=== PATIENT | female | born 1950 | race Caucasian/White ===

== ENCOUNTER 2017-10-11 05:45 | Inpatient (IN) ==
[2017-10-06 12:27] LABS: Apearance,Urine CLEAR (Clear); Bilirubin,Urine Negative (Negative); Blood, Urine Small mg/dL (Negative); Glucose,Urine (UA) Negative (Negative); Ketones,Urine Negative (Negative); Mucus,Urine Occasional /LPF (Occasional); Nitrite,Urine Negative (Negative); Protein,Urine Negative; RBC,Urine 1 /HPF (0-4); Squamous Epithelial Cell,Urine Occasional /HPF (0-10); Urine Color Straw (Yellow); Urine Specific Gravity 1.008 (1.001-1.035); Urine Urobilinogen < 2.0 EU/DL (0.2-1.0); WBC,Urine <1 /HPF (0-6)
[2017-10-06 12:28] LABS: Basophils % 0.5 % (0.0-0.8); Eosinophils # 0.2 10*3/uL (0.0-0.87); Eosinophils % 1.9 % (0.00-10.9); Hematocrit 42.2 VOL% (35.7-47.0); Hemoglobin 13.8 GM/DL (12.0-16.0); Immature Granulocytes % 0.4 %; Immature Granulocytes Absolute 0.03 #; Lymphocytes # 2.5 10*3/uL (1.4-4.0); Lymphocytes % 29.4 % (21.3-54.2); Mean Corpuscular HGB Conc 32.7 GM/DL (32-36); Mean Corpuscular Hemoglobin 30 PG (27-34); Mean Corpuscular Volume 91.3 FL (87-102); Mean Platelet Volume 10.3 FL (9.6-12.0); Monocytes # 0.7 10*3/uL (0.11-0.8); Monocytes % 8.2 % (1.7-12.7); Neutrophils # 5.1 10*3/uL (1.4-7.4); Neutrophils % 59.6 % (38.7-73.9); Platelet Count 297 T/CUMM (130-400); Red Blood Count 4.62 MC/CUMM (3.8-5.5); Red Cell Distribution Width 13.2 % (9.3-17.3); White Blood Count 8.5 T/CUMM (4-12)
[2017-10-06 12:37] LABS: INR 0.9
[2017-10-06 13:02] LABS: Albumin 3.9 G/DL (3.4-5.0); Bilirubin,Total 0.7 MG/DL (0.2-1.0); Calcium 9.2 MG/DL (8.5-10.1); Potassium 4.2 MMOL/L (3.5-5.1); Total Protein 7.6 G/DL (6.4-8.3)
[2017-10-11] MEDS ORDERED: VANCOMYCIN INJ 1,000 MG in SODIUM CHLORIDE 0.9% 250 ML IV ONE (06:00)
[2017-10-11] MEDS ORDERED: CLINDAMYCIN INJ 900 MG in PREMIX 1 EACH IV ONE (06:00)
[2017-10-11] MEDS ORDERED: SCOPOLAMINE 1.5 MG PATCH TRANSDERM ONE ×2 (06:25→06:27)
[2017-10-11] MEDS ORDERED: VANCOMYCIN 1,000 MG VIAL ONE (06:25)
[2017-10-11] MEDS ORDERED: CLINDAMYCIN INJ 50 ML IV ONE (06:25)
[2017-10-11] MEDS ORDERED: LACTATED RINGERS 1,000 ML IV SCH (06:30)
[2017-10-11] MEDS ORDERED: BACITRACIN OINT 0.9 GM PACK TOP ONE (06:36)
[2017-10-11] MEDS ORDERED: TRANEXAMIC ACID 1,000 MG/10 ML VIAL ONE (06:36)
[2017-10-11] MEDS ORDERED: BUPIVACAINE SPINAL 0.75% 2 ML AMP SPINAL ONE (06:48)
[2017-10-11] MEDS ORDERED: clonazePAM 0.5 MG TABLET PO PRN (07:20)
[2017-10-11] MEDS ORDERED: oxyCODONE/ACETAMINOPHEN 5-325 MG TABLET PO PRN (07:22)
[2017-10-11] MEDS ORDERED: oxyCODONE IR 5 MG TABLET PO PRN ×2 (07:22)
[2017-10-11] MEDS ORDERED: MORPHINE 4 MG/1 ML VIAL IV PRN ×2 (07:22)
[2017-10-11] MEDS ORDERED: ONDANSETRON 4 MG/2 ML VIAL IV PRN ×2 (07:22→10:00)
[2017-10-11] MEDS ORDERED: ROPIVACAINE 0.5% 30 ML VIAL ONE (08:57)
[2017-10-11] MEDS ORDERED: MIDAZOLAM 2 MG/2 ML VIAL ONE ×2 (09:22→09:23)
[2017-10-11] MEDS ORDERED: PROPOFOL 200 MG/20 ML VIAL IV ONE (09:22)
[2017-10-11] MEDS ORDERED: SEVOFLURANE 1 UNIT/15 MINUTE INH ONE (09:22)
[2017-10-11] MEDS ORDERED: fentaNYL 100 MCG/2 ML VIAL ONE (09:23)
[2017-10-11] MEDS ORDERED: ePHEDrine 50 MG/ML AMP ONE (09:23)
[2017-10-11] MEDS ORDERED: ONDANSETRON 4 MG/2 ML VIAL ONE (09:23)
[2017-10-11] MEDS ORDERED: PROMETHAZINE 25 MG/1 ML VIAL ONE (09:23)
[2017-10-11] MEDS ORDERED: SODIUM CHLORIDE 0.9% 100 ML IV ONE (09:24)
[2017-10-11] MEDS ORDERED: ACETAMINOPHEN 1,000 MG/100 ML VIAL IV ONE (09:24)
[2017-10-11] MEDS ORDERED: LACTATED RINGERS 1,000 ML IV ONE (09:24)
[2017-10-11] MEDS ORDERED: DEXAMETHASONE 20 MG/5 ML VIAL ONE (09:24)
[2017-10-11] MEDS: MORPHINE 10 MG/1 ML VIAL IV PRN ×2 (10:05→10:12)
[2017-10-11] MEDS: ACETAMINOPHEN 500 MG TABLET PO SCH ×2 (12:47→18:27)
[2017-10-11] MEDS: CLINDAMYCIN INJ 900 MG in PREMIX 1 EACH IV SCH (12:48)
[2017-10-11] MEDS: LACTATED RINGERS 1,000 ML IV SCH ×3 (15:30→23:30)
[2017-10-11] MEDS: ALBUTEROL 2.5 MG/3 ML NEB RESP TX SCH ×2 (17:33→19:27)
[2017-10-11] MEDS: MONTELUKAST 10 MG TABLET PO SCH (18:26)
[2017-10-11] MEDS: hydroCHLOROthiazide 12.5 MG CAPSULE PO SCH (18:26)
[2017-10-11] MEDS: PANTOPRAZOLE 40 MG TABLET PO SCH (18:26)
[2017-10-11] MEDS: DOCUSATE SODIUM 100 MG CAPSULE PO SCH ×2 (18:26→22:19)
[2017-10-11] MEDS: KETOROLAC 30 MG/1 ML VIAL IV SCH ×3 (18:27→22:19)
[2017-10-12] MEDS: ALBUTEROL 2.5 MG/3 ML NEB RESP TX SCH ×2 (00:07→07:22)
[2017-10-12] MEDS ORDERED: CLINDAMYCIN INJ 900 MG in PREMIX 1 EACH IV SCH (00:30)
[2017-10-12] MEDS: ACETAMINOPHEN 500 MG TABLET PO SCH ×2 (01:31→06:12)
[2017-10-12] MEDS: FONDAPARINUX 2.5 MG/0.5 ML SYRINGE SUBCUT SCH (01:35)
[2017-10-12 05:57] LABS: Basophils % 0.1 % (0.0-0.8); Hematocrit 31.4 VOL% (35.7-47.0); Hemoglobin 10.4 GM/DL (12.0-16.0); Immature Granulocytes % 0.5 %; Immature Granulocytes Absolute 0.07 #; Lymphocytes # 1.3 10*3/uL (1.4-4.0); Lymphocytes % 9.7 % (21.3-54.2); Mean Corpuscular HGB Conc 33.1 GM/DL (32-36); Mean Corpuscular Hemoglobin 30 PG (27-34); Mean Platelet Volume 10.9 FL (9.6-12.0); Neutrophils # 10.6 10*3/uL (1.4-7.4); Neutrophils % 81.7 % (38.7-73.9); Platelet Count 239 T/CUMM (130-400); Red Blood Count 3.53 MC/CUMM (3.8-5.5); Red Cell Distribution Width 13.3 % (9.3-17.3)
[2017-10-12 06:29] LABS: Calcium 8.5 MG/DL (8.5-10.1); Osmolality,Calculated 280.3 MOS/KG (273-304); Potassium 3.9 MMOL/L (3.5-5.1)
[2017-10-12] MEDS ORDERED: MAGNESIUM HYDROXIDE SUSP 30 ML UDCUP PO PRN (08:00)
[2017-10-12] MEDS: BISOPROLOL 5 MG TABLET PO SCH ×3 (09:00→22:01)
[2017-10-12] MEDS: CLINDAMYCIN INJ 900 MG in PREMIX 1 EACH IV SCH (09:01)
[2017-10-12] MEDS: KETOROLAC 30 MG/1 ML VIAL IV SCH (09:01)
[2017-10-12] MEDS: LACTATED RINGERS 1,000 ML IV SCH (09:02)
[2017-10-12] MEDS: PANTOPRAZOLE 40 MG TABLET PO SCH (09:11)
[2017-10-12] MEDS: MONTELUKAST 10 MG TABLET PO SCH (09:11)
[2017-10-12] MEDS: DOCUSATE SODIUM 100 MG CAPSULE PO SCH ×2 (09:11→21:56)
[2017-10-12] MEDS: hydroCHLOROthiazide 12.5 MG CAPSULE PO SCH (09:12)
[2017-10-12] MEDS: oxyCODONE/ACETAMINOPHEN 5-325 MG TABLET PO PRN ×2 (10:32→14:42)
[2017-10-12] MEDS ORDERED: ALBUTEROL 2.5 MG/3 ML NEB RESP TX PRN (11:24)
[2017-10-12] MEDS: CELECOXIB 200 MG CAPSULE PO SCH (14:42)
[2017-10-13] MEDS: diphenhydrAMINE CAP 25 MG CAPSULE PO PRN ×2 (01:36→11:20)
[2017-10-13] MEDS: oxyCODONE/ACETAMINOPHEN 5-325 MG TABLET PO PRN (01:36)
[2017-10-13] MEDS: FONDAPARINUX 2.5 MG/0.5 ML SYRINGE SUBCUT SCH (01:39)
[2017-10-13 06:45] LABS: Basophils % 0.2 % (0.0-0.8); Eosinophils # 0.1 10*3/uL (0.0-0.87); Eosinophils % 0.5 % (0.00-10.9); Hematocrit 31.1 VOL% (35.7-47.0); Immature Granulocytes % 0.4 %; Immature Granulocytes Absolute 0.04 #; Lymphocytes # 3.1 10*3/uL (1.4-4.0); Lymphocytes % 28.2 % (21.3-54.2); Mean Corpuscular HGB Conc 32.2 GM/DL (32-36); Mean Corpuscular Hemoglobin 30 PG (27-34); Mean Corpuscular Volume 92.8 FL (87-102); Mean Platelet Volume 11.3 FL (9.6-12.0); Monocytes # 1.1 10*3/uL (0.11-0.8); Monocytes % 9.9 % (1.7-12.7); Neutrophils # 6.7 10*3/uL (1.4-7.4); Neutrophils % 60.8 % (38.7-73.9); Platelet Count 207 T/CUMM (130-400); Red Blood Count 3.35 MC/CUMM (3.8-5.5); Red Cell Distribution Width 13.9 % (9.3-17.3)
[2017-10-13] MEDS: diphenhydrAMINE CAP 25 MG CAPSULE PO SCH ×2 (07:41→09:00)
[2017-10-13] MEDS: GABAPENTIN 300 MG CAPSULE PO SCH ×2 (07:41→09:00)
[2017-10-13] MEDS: BISOPROLOL 5 MG TABLET PO SCH ×2 (08:16→21:26)
[2017-10-13] MEDS: hydroCHLOROthiazide 12.5 MG CAPSULE PO SCH (08:16)
[2017-10-13] MEDS: CELECOXIB 200 MG CAPSULE PO SCH (08:16)
[2017-10-13] MEDS: PANTOPRAZOLE 40 MG TABLET PO SCH (08:16)
[2017-10-13] MEDS: DOCUSATE SODIUM 100 MG CAPSULE PO SCH ×2 (08:19→21:23)
[2017-10-13] MEDS: MONTELUKAST 10 MG TABLET PO SCH (08:19)
[2017-10-13] MEDS: ONDANSETRON 4 MG PO SCH (09:00)
[2017-10-14] MEDS: FONDAPARINUX 2.5 MG/0.5 ML SYRINGE SUBCUT SCH (01:12)
[2017-10-14 03:52] LABS: Basophils % 0.4 % (0.0-0.8); Eosinophils # 0.2 10*3/uL (0.0-0.87); Eosinophils % 1.4 % (0.00-10.9); Hematocrit 34.2 VOL% (35.7-47.0); Immature Granulocytes % 0.5 %; Immature Granulocytes Absolute 0.05 #; Lymphocytes # 2.1 10*3/uL (1.4-4.0); Lymphocytes % 19.5 % (21.3-54.2); Mean Corpuscular HGB Conc 32.2 GM/DL (32-36); Mean Corpuscular Hemoglobin 30 PG (27-34); Mean Corpuscular Volume 92.4 FL (87-102); Mean Platelet Volume 11.2 FL (9.6-12.0); Monocytes % 9.8 % (1.7-12.7); Neutrophils # 7.2 10*3/uL (1.4-7.4); Neutrophils % 68.4 % (38.7-73.9); Platelet Count 233 T/CUMM (130-400); Red Cell Distribution Width 13.6 % (9.3-17.3); White Blood Count 10.6 T/CUMM (4-12)
[2017-10-14] MEDS: MONTELUKAST 10 MG TABLET PO SCH (08:39)
[2017-10-14] MEDS: BISOPROLOL 5 MG TABLET PO SCH ×2 (08:40→21:11)
[2017-10-14] MEDS: CELECOXIB 200 MG CAPSULE PO SCH (08:40)
[2017-10-14] MEDS: hydroCHLOROthiazide 12.5 MG CAPSULE PO SCH (08:40)
[2017-10-14] MEDS: PANTOPRAZOLE 40 MG TABLET PO SCH (08:41)
[2017-10-14] MEDS: DOCUSATE SODIUM 100 MG CAPSULE PO SCH ×2 (08:41→21:13)
[2017-10-14] MEDS: TEMAZEPAM 15 MG CAPSULE PO PRN (21:11)
[2017-10-15] MEDS: FONDAPARINUX 2.5 MG/0.5 ML SYRINGE SUBCUT SCH (01:45)
[2017-10-15] MEDS: PANTOPRAZOLE 40 MG TABLET PO SCH (08:16)
[2017-10-15] MEDS: hydroCHLOROthiazide 12.5 MG CAPSULE PO SCH (08:16)
[2017-10-15] MEDS: CELECOXIB 200 MG CAPSULE PO SCH (08:16)
[2017-10-15] MEDS: DOCUSATE SODIUM 100 MG CAPSULE PO SCH ×2 (08:16→20:22)
[2017-10-15] MEDS: MONTELUKAST 10 MG TABLET PO SCH (08:16)
[2017-10-15] MEDS: BISOPROLOL 5 MG TABLET PO SCH ×2 (08:16→20:21)
[2017-10-15] MEDS ORDERED: traMADol 50 MG TABLET PO PRN (19:24)
[2017-10-15] MEDS: traMADol 50 MG TABLET PO PRN (19:29)
[2017-10-15] MEDS: TEMAZEPAM 15 MG CAPSULE PO PRN (20:21)
[2017-10-16] MEDS: FONDAPARINUX 2.5 MG/0.5 ML SYRINGE SUBCUT SCH (01:14)
[2017-10-16] MEDS: CELECOXIB 200 MG CAPSULE PO SCH (10:17)
[2017-10-16] MEDS: BISOPROLOL 5 MG TABLET PO SCH (10:18)
[2017-10-16] MEDS: PANTOPRAZOLE 40 MG TABLET PO SCH (10:18)
[2017-10-16] MEDS: DOCUSATE SODIUM 100 MG CAPSULE PO SCH (10:19)
[2017-10-16] MEDS: MONTELUKAST 10 MG TABLET PO SCH (10:19)
[2017-10-16] MEDS: hydroCHLOROthiazide 12.5 MG CAPSULE PO SCH (10:19)
[2017-10-16] MEDS: traMADol 50 MG TABLET PO PRN ×2 (10:27→13:05)
[2017-10-16 11:35] VITALS: BP 116/60
== END 2017-10-16 13:09 | disposition swing bed (61) | DRG 470 ==
LOC: N.OR 05:45 → N.SDSINP 05:48 → N.3E 07:22
PROVIDERS: ADMIT Orthopaedic Surgery; ATTEND Orthopaedic Surgery

== ENCOUNTER 2018-09-18 05:42 | Inpatient (IN) ==
[2018-09-13 11:36] LABS: Basophils % 0.4 % (0.0-0.8); Eosinophils # 0.1 10*3/uL (0.0-0.87); Eosinophils % 1.9 % (0.00-10.9); Hematocrit 39.2 VOL% (35.7-47.0); Hemoglobin 12.3 GM/DL (12.0-16.0); Immature Granulocytes % 0.3 %; Immature Granulocytes Absolute 0.02 #; Lymphocytes # 1.7 10*3/uL (1.4-4.0); Mean Corpuscular HGB Conc 31.4 GM/DL (32-36); Mean Corpuscular Hemoglobin 29 PG (27-34); Mean Corpuscular Volume 93.1 FL (87-102); Mean Platelet Volume 9.9 FL (9.6-12.0); Monocytes # 0.7 10*3/uL (0.11-0.8); Monocytes % 10.6 % (1.7-12.7); Neutrophils # 4.4 10*3/uL (1.4-7.4); Neutrophils % 62.8 % (38.7-73.9); Platelet Count 262 T/CUMM (130-400); Red Blood Count 4.21 MC/CUMM (3.8-5.5); Red Cell Distribution Width 13.1 % (9.3-17.3)
[2018-09-13 11:46] LABS: Apearance,Urine CLEAR (Clear); Bacteria,Urine Occasional /HPF (Few); Bilirubin,Urine Negative (Negative); Blood, Urine Negative (Negative); Glucose,Urine (UA) Negative (Negative); Ketones,Urine Negative (Negative); Mucus,Urine Occasional /LPF (Occasional); Nitrite,Urine Negative (Negative); Protein,Urine Negative; RBC,Urine 1 /HPF (0-4); Squamous Epithelial Cell,Urine Occasional /HPF (0-10); Urine Color Yellow (Yellow); Urine Specific Gravity 1.006 (1.001-1.035); Urine Urobilinogen < 2.0 EU/DL (0.2-1.0); WBC,Urine <1 /HPF (0-6)
[2018-09-13 11:46] LABS: INR 0.9; PT Patient Result 10.1 SECS; Partial Thromboplastin Time 25.9 SECS (0-40)
[2018-09-13 12:08] LABS: Albumin 3.2 G/DL (3.4-5.0); Bilirubin,Total 0.9 MG/DL (0.2-1.0); Calcium 8.7 MG/DL (8.5-10.1); Osmolality,Calculated 280.1 MOS/KG (273-304); Potassium 4.1 MMOL/L (3.5-5.1); Total Protein 7.4 G/DL (6.4-8.3)
[2018-09-18] MEDS ORDERED: ceFAZolin 1,000 MG VIAL ONE (05:58)
[2018-09-18] MEDS ORDERED: VANCOMYCIN 1,000 MG VIAL ONE (05:58)
[2018-09-18] MEDS ORDERED: TRANEXAMIC ACID 1,000 MG/10 ML VIAL ONE ×2 (06:01→06:37)
[2018-09-18] MEDS ORDERED: ROPIVACAINE 0.5% 30 ML VIAL ONE ×2 (06:01→07:01)
[2018-09-18] MEDS ORDERED: BUPIVACAINE SPINAL 0.75% 2 ML AMP SPINAL ONE (06:01)
[2018-09-18] MEDS ORDERED: CLINDAMYCIN INJ 900 MG in PREMIX 1 EACH IV ONE (06:30)
[2018-09-18] MEDS ORDERED: LACTATED RINGERS 1,000 ML IV SCH (06:30)
[2018-09-18] MEDS ORDERED: VANCOMYCIN INJ 1,000 MG in SODIUM CHLORIDE 0.9% 250 ML IV ONE (06:30)
[2018-09-18] MEDS ORDERED: BACITRACIN OINT 0.9 GM PACK TOP ONE (06:37)
[2018-09-18] MEDS ORDERED: ceFAZolin 1,000 MG in SYRINGE 1 EACH IV ONE (09:00)
[2018-09-18] MEDS ORDERED: PROPOFOL 200 MG/20 ML VIAL IV ONE (09:10)
[2018-09-18] MEDS ORDERED: fentaNYL 100 MCG/2 ML VIAL ONE (09:11)
[2018-09-18] MEDS ORDERED: ONDANSETRON 4 MG/2 ML VIAL ONE (09:11)
[2018-09-18] MEDS ORDERED: MIDAZOLAM 2 MG/2 ML VIAL ONE (09:11)
[2018-09-18] MEDS ORDERED: DEXAMETHASONE 4 MG/1 ML VIAL ONE (09:11)
[2018-09-18] MEDS ORDERED: ACETAMINOPHEN 1,000 MG/100 ML VIAL IV ONE (09:12)
[2018-09-18] MEDS ORDERED: SODIUM CHLORIDE 0.9% 200 ML IV ONE (09:12)
[2018-09-18] MEDS ORDERED: LACTATED RINGERS 1,000 ML IV ONE (09:12)
[2018-09-18] MEDS ORDERED: PHENYLEPHRINE 1 MG/10 ML SYRINGE IV ONE (09:12)
[2018-09-18] MEDS ORDERED: KETOROLAC 30 MG/1 ML VIAL ONE (09:12)
[2018-09-18] MEDS ORDERED: clonazePAM 0.5 MG TABLET PO PRN (09:24)
[2018-09-18] MEDS ORDERED: ALBUTEROL 2.5 MG/3 ML NEB RESP TX PRN (09:24)
[2018-09-18] MEDS ORDERED: MAGNESIUM HYDROXIDE SUSP 30 ML UDCUP PO PRN (09:25)
[2018-09-18] MEDS ORDERED: MORPHINE 4 MG/1 ML VIAL IV PRN (09:25)
[2018-09-18] MEDS ORDERED: ONDANSETRON 4 MG/2 ML VIAL IV PRN (09:25)
[2018-09-18] MEDS ORDERED: DOCUSATE SODIUM 100 MG CAPSULE PO SCH (09:30)
[2018-09-18] MEDS: LACTATED RINGERS 1,000 ML IV SCH (11:29)
[2018-09-18] MEDS: KETOROLAC 30 MG/1 ML VIAL IV SCH ×4 (11:30→21:44)
[2018-09-18] MEDS: ceFAZolin 2,000 MG in PREMIX 1 EACH IV SCH ×2 (14:06→20:38)
[2018-09-18] MEDS: ACETAMINOPHEN 500 MG TABLET PO SCH ×2 (14:06→20:37)
[2018-09-18] MEDS: MONTELUKAST 10 MG TABLET PO SCH (20:37)
[2018-09-18] MEDS: DOCUSATE SODIUM 100 MG CAPSULE PO SCH (20:38)
[2018-09-19] MEDS: LACTATED RINGERS 1,000 ML IV SCH ×2 (00:33→09:25)
[2018-09-19] MEDS: ACETAMINOPHEN 500 MG TABLET PO SCH ×2 (01:58→08:27)
[2018-09-19] MEDS: FONDAPARINUX 2.5 MG/0.5 ML SYRINGE SUBCUT SCH (05:23)
[2018-09-19 05:57] LABS: Basophils % 0.1 % (0.0-0.8); Eosinophils % 0.1 % (0.00-10.9); Hematocrit 30.9 VOL% (35.7-47.0); Immature Granulocytes % 0.4 %; Immature Granulocytes Absolute 0.04 #; Lymphocytes # 1.9 10*3/uL (1.4-4.0); Lymphocytes % 18.8 % (21.3-54.2); Mean Corpuscular HGB Conc 32.4 GM/DL (32-36); Mean Corpuscular Hemoglobin 30 PG (27-34); Mean Corpuscular Volume 92.8 FL (87-102); Mean Platelet Volume 10.4 FL (9.6-12.0); Monocytes % 9.6 % (1.7-12.7); Neutrophils # 7.3 10*3/uL (1.4-7.4); Platelet Count 204 T/CUMM (130-400); Red Blood Count 3.33 MC/CUMM (3.8-5.5); Red Cell Distribution Width 13.2 % (9.3-17.3); White Blood Count 10.2 T/CUMM (4-12)
[2018-09-19 06:22] LABS: Calcium 8.5 MG/DL (8.5-10.1); Potassium 3.9 MMOL/L (3.5-5.1)
[2018-09-19] MEDS ORDERED: TEMAZEPAM 15 MG CAPSULE PO PRN (06:22)
[2018-09-19] MEDS ORDERED: ACETAMINOPHEN 325 MG TABLET PO PRN (06:22)
[2018-09-19] MEDS: PANTOPRAZOLE 40 MG TABLET PO SCH (08:27)
[2018-09-19] MEDS: GABAPENTIN 300 MG CAPSULE PO SCH (08:27)
[2018-09-19] MEDS: CETIRIZINE 10 MG TABLET PO SCH (08:28)
[2018-09-19] MEDS: DOCUSATE SODIUM 100 MG CAPSULE PO SCH ×2 (08:28→20:21)
[2018-09-19] MEDS: BISOPROLOL 5 MG TABLET PO SCH (09:12)
[2018-09-19] MEDS: CELECOXIB 200 MG CAPSULE PO SCH (15:13)
[2018-09-19] MEDS: oxyCODONE IR 5 MG TABLET PO PRN (17:23)
[2018-09-19] MEDS: diphenhydrAMINE CAP 25 MG CAPSULE PO PRN (17:23)
[2018-09-19] MEDS: MONTELUKAST 10 MG TABLET PO SCH (20:21)
[2018-09-20] MEDS: oxyCODONE IR 5 MG TABLET PO PRN ×3 (02:47→19:44)
[2018-09-20] MEDS: diphenhydrAMINE CAP 25 MG CAPSULE PO PRN ×3 (02:47→19:44)
[2018-09-20] MEDS: FONDAPARINUX 2.5 MG/0.5 ML SYRINGE SUBCUT SCH (04:52)
[2018-09-20 06:06] LABS: Basophils % 0.1 % (0.0-0.8); Eosinophils # 0.1 10*3/uL (0.0-0.87); Eosinophils % 0.9 % (0.00-10.9); Hematocrit 34.3 VOL% (35.7-47.0); Hemoglobin 10.9 GM/DL (12.0-16.0); Immature Granulocytes % 0.8 %; Immature Granulocytes Absolute 0.07 #; Mean Corpuscular HGB Conc 31.8 GM/DL (32-36); Mean Corpuscular Hemoglobin 30 PG (27-34); Mean Corpuscular Volume 93.2 FL (87-102); Mean Platelet Volume 11.1 FL (9.6-12.0); Monocytes # 0.9 10*3/uL (0.11-0.8); Monocytes % 10.1 % (1.7-12.7); Neutrophils # 6.1 10*3/uL (1.4-7.4); Neutrophils % 66.1 % (38.7-73.9); Platelet Count 200 T/CUMM (130-400); Red Blood Count 3.68 MC/CUMM (3.8-5.5); Red Cell Distribution Width 13.2 % (9.3-17.3); White Blood Count 9.2 T/CUMM (4-12)
[2018-09-20] MEDS: GABAPENTIN 300 MG CAPSULE PO SCH (08:06)
[2018-09-20] MEDS: DOCUSATE SODIUM 100 MG CAPSULE PO SCH ×2 (08:06→19:40)
[2018-09-20] MEDS: CETIRIZINE 10 MG TABLET PO SCH (08:06)
[2018-09-20] MEDS: PANTOPRAZOLE 40 MG TABLET PO SCH (08:06)
[2018-09-20] MEDS: BISOPROLOL 5 MG TABLET PO SCH (08:06)
[2018-09-20] MEDS: CELECOXIB 200 MG CAPSULE PO SCH (08:06)
[2018-09-20] MEDS: MONTELUKAST 10 MG TABLET PO SCH (19:40)
[2018-09-21] MEDS: oxyCODONE IR 5 MG TABLET PO PRN ×2 (04:18→10:22)
[2018-09-21] MEDS: diphenhydrAMINE CAP 25 MG CAPSULE PO PRN ×2 (04:18→10:22)
[2018-09-21] MEDS: FONDAPARINUX 2.5 MG/0.5 ML SYRINGE SUBCUT SCH (04:18)
[2018-09-21] MEDS ORDERED: BISACODYL 10 MG SUPP RECTAL ONE (08:27)
[2018-09-21] MEDS: GABAPENTIN 300 MG CAPSULE PO SCH (10:21)
[2018-09-21] MEDS: DOCUSATE SODIUM 100 MG CAPSULE PO SCH (10:21)
[2018-09-21] MEDS: PANTOPRAZOLE 40 MG TABLET PO SCH (10:21)
[2018-09-21] MEDS: CELECOXIB 200 MG CAPSULE PO SCH (10:21)
[2018-09-21] MEDS: BISOPROLOL 5 MG TABLET PO SCH (10:22)
[2018-09-21] MEDS: CETIRIZINE 10 MG TABLET PO SCH (10:24)
[2018-09-21 12:11] VITALS: BP 162/93
== END 2018-09-21 14:15 | disposition swing bed (61) | DRG 470 ==
LOC: N.OR 05:42 → N.SDSINP 05:43 → N.3E 09:26
PROVIDERS: ADMIT Orthopaedic Surgery; ATTEND Orthopaedic Surgery